=== PATIENT | female | born 1970 | race Caucasian/White ===

== ENCOUNTER 2017-08-03 22:11 | Emergency (ER) | payer MEDICAID | END 2017-08-04 01:00 | disposition home or self-care (01) | LOC: D.ER 22:11 | DX: S39.012A Strain of muscle, fascia and tendon of lower back, initial encounter (principal); W10.9XXA Fall (on) (from) unspecified stairs and steps, initial encounter; Y93.89 Activity, other specified; Y92.019 Unspecified place in single-family (private) house as the place of occurrence of the external cause; F17.200 Nicotine dependence, unspecified, uncomplicated ==

== ENCOUNTER 2017-10-07 21:14 | Inpatient (IN) | payer MEDICAID ==
[~2017-10-07] VITALS: Ht 167.6 cm; Wt 63.6 kg
--- NOTE | ~2017-10-07 | HP ---
PATIENT: HEIDI DAVIS MEDICAL RECORD: [id number] ACCOUNT: [id number] LOCATION:[facility] : 74 ADMISSION DATE: 10/08/17 HISTORY AND PHYSICAL EXAMINATION DATE OF ADMISSION: 10/08/2017 CHIEF COMPLAINT: Coughing, shortness of breath. HISTORY OF PRESENT ILLNESS: This is a 46-year-old white female who has no primary care doctor. She and her moved here from [place] about 3 months ago. She has been to a walk-in clinic twice with cough, congestion problems. The second time, she was diagnosed with pneumonia and she was prescribed an inhaler and placed on Zithromax. She was also given some steroids. She has been on this medicine for a few days, it has gotten better and presented to the Emergency Department here where chest x-ray shows bibasilar infiltrates. Her potassium is low at 2.6 and her white count is high at 21,600. PAST MEDICAL AND SURGICAL HISTORY: Fibromyalgia, night terrors/anxiety. PAST SURGICAL HISTORY: . HOME MEDICATIONS: Lyrica 200 mg once a day, Xanax 1 mg at bedtime. DRUG ALLERGIES: TRAMADOL causes headache. HABITS: She does smoke. No alcohol or drugs. SOCIAL HISTORY: . She works in the [employer] department in the [place]. FAMILY HISTORY: Father . He had a stroke and heart problems. Mother at age 70 of a stroke. REVIEW OF SYSTEMS: GENERAL: No major weight changes. HEENT: No particular sinus or allergy problems. RESPIRATORY: No known history of COPD or asthma. CARDIAC: No chest pain or shortness of breath. GASTROINTESTINAL: No diarrhea, constipation, or reflux. GENITOURINARY: No significant problems there. MUSCULOSKELETAL: She has a history of fibromyalgia. NEUROLOGIC: No migraine headaches or seizures. PSYCHIATRIC: She has history of night terrors and anxiety. She has had several family members to in a short period of time. PHYSICAL EXAMINATION: VITAL SIGNS: Temperature 98.1, pulse 97, respirations 18, blood pressure 158/109, O2 sat 97% on oxygen. GENERAL: She is awake and alert. She has an occasional terrible loose cough. HEENT: Grossly within normal limits. NECK: Supple. No JVD or bruit. HEART: Regular rate and rhythm. LUNGS: Actually fairly clear. ABDOMEN: Soft. EXTREMITIES: No edema. HISTORY AND PHYSICAL [id number] HEIDI DAVIS LABORATORY DATA: CBC showed a white count of 21,600, hemoglobin 12.7, hematocrit 36.7. LFTs were okay. Basic metabolic panel is all okay except potassium of 2.6. Lactic acid is 2.2. Chest x-ray shows bibasilar disease. ASSESSMENT: 1. Pneumonia. 2. History of fibromyalgia. 3. History of night terrors. PLAN: IV antibiotics, respiratory care. Other tests or procedures as warranted. TRANSINT:[id number] Voice Confirmation ID: [id number] DOCUMENT ID: [id number] ROBERTO CARLOS CUNNINGHAM MD at 1250 CC: [id number] DICTATION DATE: 10/08/17 1320 ACTIVITY SPECIALIST: 10/08/17 1333 ADM IN [place] [id number] [place] [address]
[2017-10-07] MEDS ORDERED: ZITHROMAX250 MG PO (21:38)
[2017-10-07] MEDS ORDERED: PROVENTIL/2.5 MG/3 M INH (21:39)
[2017-10-07] MEDS ORDERED: XANAX1 MG PO (21:39)
[2017-10-07] MEDS ORDERED: PHENERGAN DM SYR5 ML (21:40)
[2017-10-07 23:40] LABS: HEMATOCRIT 36.7 % (36.0-48.0); HEMOGLOBIN 12.7 g/dL (12-16); MCH 31.7 pg (26.0-34.0); MCHC 34.6 g/dL (31.0-37.0); MCV 91.5 fL (80.0-100.0); MEAN PLATELET VOLUME 8.9 fL (7.4-10.4); PLATELET COUNT 305 10x3/uL (130-400); RBC 4.01 10x6/uL (4.00-5.40); RDW 12.9 % (11.5-14.5); WBC 21.6 10x3/uL (4.8-10.8)
[2017-10-08 00:03] LABS: ANION GAP 13.3 mmol/L (8-16); BILIRUBIN - TOTAL 0.11 mg/dL (0.2-1.3); CALCIUM 8.2 mg/dL (8.5-10.1); CARBON DIOXIDE 24.3 mmol/L (21.0-32.0); CREATININE - SERUM 1.1 mg/dL (0.6-1.3); PROTEIN - SERUM 6.9 g/dL (6.4-8.2)
[2017-10-08 00:10] LABS: POTASSIUM - SERUM 2.6 mmol/L (3.5-5.1)
[2017-10-08 00:18] LABS: LYMPHOCYTES 27 % (15-50); MONOCYTES 1 % (2-11); NEUTROPHILS 70 % (40-80); PLATELET ESTIMATE NORMAL
[2017-10-08 03:06] LABS: CKMB 2.5 U/L (0.0-3.6); CREATINE KINASE 101 UL (21-215); TROPONIN-I < 0.017 ng/mL (0.000-0.060)
[2017-10-08 03:24] VITALS: BP 138/103
[2017-10-08 06:26] VITALS: BP 147/91
[2017-10-08 12:05] VITALS: BP 158/109
[2017-10-08 12:09] LABS: BASOPHILS 0.1 % (0-2); EOSINOPHILS 0 % (0-7); HEMOGLOBIN 12.7 g/dL (12-16); IMMATURE GRANULOCYTES 2.8 % (0-5); LYMPHOCYTES 13.7 % (15-50); MCH 31.3 pg (26.0-34.0); MCHC 33.4 g/dL (31.0-37.0); MEAN PLATELET VOLUME 9.6 fL (7.4-10.4); MONOCYTES 3.1 % (2-11); NEUTROPHILS 80.3 % (40-80); PLATELET COUNT 293 10x3/uL (130-400); RBC 4.06 10x6/uL (4.00-5.40); RDW 13.2 % (11.5-14.5)
[2017-10-08 12:16] LABS: MCV 93.6 fL (80.0-100.0); WBC 15.9 10x3/uL (4.8-10.8)
[2017-10-08 12:34] LABS: ALBUMIN 3.2 g/dL (3.4-5.0); ANION GAP 12.7 mmol/L (8-16); BILIRUBIN - TOTAL 0.13 mg/dL (0.2-1.3); CALCIUM 8.4 mg/dL (8.5-10.1); CARBON DIOXIDE 28.4 mmol/L (21.0-32.0)
[2017-10-08 12:35] LABS: POTASSIUM - SERUM 4.1 mmol/L (3.5-5.1)
[2017-10-08 22:40] VITALS: BP 131/81
[2017-10-09 01:14] VITALS: BP 150/90
[2017-10-09 03:38] VITALS: BP 131/81; Ht 167.6 cm; Wt 63.6 kg
[2017-10-09 05:44] LABS: BASOPHILS 0.1 % (0-2); EOSINOPHILS 0.1 % (0-7); HEMOGLOBIN 12.1 g/dL (12-16); IMMATURE GRANULOCYTES 3.9 % (0-5); LYMPHOCYTES 13.1 % (15-50); MCH 30.9 pg (26.0-34.0); MCHC 32.7 g/dL (31.0-37.0); MCV 94.4 fL (80.0-100.0); MEAN PLATELET VOLUME 9.7 fL (7.4-10.4); MONOCYTES 5.5 % (2-11); NEUTROPHILS 77.3 % (40-80); PLATELET COUNT 290 10x3/uL (130-400); RBC 3.92 10x6/uL (4.00-5.40); WBC 18.3 10x3/uL (4.8-10.8)
[2017-10-09 06:04] LABS: ANION GAP 8.5 mmol/L (8-16); CALCIUM 7.8 mg/dL (8.5-10.1); CARBON DIOXIDE 29.1 mmol/L (21.0-32.0); CREATININE - SERUM 1.1 mg/dL (0.6-1.3); POTASSIUM - SERUM 3.6 mmol/L (3.5-5.1)
[2017-10-09 08:00] VITALS: BP 139/96
[2017-10-09 11:39] VITALS: BP 144/92
[2017-10-09 16:49] VITALS: BP 128/81
[2017-10-09 20:19] VITALS: BP 152/88
[2017-10-10 00:20] VITALS: BP 125/79
[2017-10-10 03:34] VITALS: BP 154/74
[2017-10-10 05:54] LABS: BASOPHILS 0.1 % (0-2); EOSINOPHILS 0.1 % (0-7); HEMATOCRIT 35.5 % (36.0-48.0); HEMOGLOBIN 11.8 g/dL (12-16); IMMATURE GRANULOCYTES 4.9 % (0-5); LYMPHOCYTES 13.7 % (15-50); MCH 30.6 pg (26.0-34.0); MCHC 33.2 g/dL (31.0-37.0); MEAN PLATELET VOLUME 9.7 fL (7.4-10.4); NEUTROPHILS 77.2 % (40-80); PLATELET COUNT 282 10x3/uL (130-400); RBC 3.86 10x6/uL (4.00-5.40); RDW 12.9 % (11.5-14.5); WBC 17.8 10x3/uL (4.8-10.8)
[2017-10-10 06:09] LABS: ANION GAP 10.4 mmol/L (8-16); CREATININE - SERUM 1.1 mg/dL (0.6-1.3); POTASSIUM - SERUM 3.4 mmol/L (3.5-5.1)
[2017-10-10 08:33] VITALS: BP 155/93
[2017-10-10 12:22] VITALS: BP 143/90
[2017-10-10 17:16] VITALS: BP 141/64
[2017-10-10 20:04] VITALS: BP 136/85
[2017-10-11] VITALS: BP 150/92
[2017-10-11 04:59] VITALS: BP 140/86
[2017-10-11 06:22] LABS: BASOPHILS 0.2 % (0-2); EOSINOPHILS 0 % (0-7); HEMATOCRIT 36.7 % (36.0-48.0); HEMOGLOBIN 12.3 g/dL (12-16); IMMATURE GRANULOCYTES 6.5 % (0-5); LYMPHOCYTES 11.1 % (15-50); MCH 30.8 pg (26.0-34.0); MCHC 33.5 g/dL (31.0-37.0); MONOCYTES 2.9 % (2-11); NEUTROPHILS 79.3 % (40-80); PLATELET COUNT 314 10x3/uL (130-400); RBC 3.99 10x6/uL (4.00-5.40); RDW 12.9 % (11.5-14.5)
[2017-10-11 06:57] LABS: % SATURATION 42 % (15-55); IRON 111 ug/dl (35-150); TOTAL IRON BIND CAPACITY 262 ug/dl (260-445); UNSAT IRON BIND CAPACITY 151 ug/dl (150-375)
[2017-10-11 07:02] LABS: ANION GAP 15.2 mmol/L (8-16); CALCIUM 8.2 mg/dL (8.5-10.1); CARBON DIOXIDE 27.2 mmol/L (21.0-32.0); CREATININE - SERUM 1.2 mg/dL (0.6-1.3); MAGNESIUM - SERUM 2.3 mg/dL (1.8-2.4); PHOSPHOROUS 4.4 mg/dL (2.5-4.9); POTASSIUM - SERUM 3.4 mmol/L (3.5-5.1)
[2017-10-11 07:40] LABS: ERYTHROCYTE SEDIMENTATION RATE 6 mm/hr (0-20)
[2017-10-11 09:36] VITALS: BP 151/92
[2017-10-11 15:03] VITALS: BP 146/94
[2017-10-11 18:07] VITALS: BP 149/96
[2017-10-11 20:43] VITALS: BP 152/92
[2017-10-12 00:43] VITALS: BP 149/91
[2017-10-12 05:06] VITALS: BP 156/107
[2017-10-12 05:40] LABS: BASOPHILS 0.2 % (0-2); EOSINOPHILS 0 % (0-7); HEMATOCRIT 37.5 % (36.0-48.0); HEMOGLOBIN 12.7 g/dL (12-16); IMMATURE GRANULOCYTES 6.9 % (0-5); LYMPHOCYTES 11.9 % (15-50); MCH 31.2 pg (26.0-34.0); MCHC 33.9 g/dL (31.0-37.0); MCV 92.1 fL (80.0-100.0); MEAN PLATELET VOLUME 9.6 fL (7.4-10.4); MONOCYTES 4.5 % (2-11); NEUTROPHILS 76.5 % (40-80); PLATELET COUNT 300 10x3/uL (130-400); RBC 4.07 10x6/uL (4.00-5.40); RDW 12.9 % (11.5-14.5); WBC 16.9 10x3/uL (4.8-10.8)
[2017-10-12 06:09] LABS: ANION GAP 9.8 mmol/L (8-16); CALCIUM 8.2 mg/dL (8.5-10.1); CARBON DIOXIDE 30.8 mmol/L (21.0-32.0); POTASSIUM - SERUM 3.6 mmol/L (3.5-5.1)
[2017-10-12] MEDS ORDERED: MAXIPIME1 GM IV (07:03)
[2017-10-12 08:30] VITALS: BP 150/93
[2017-10-12 12:45] VITALS: BP 166/92
[2017-10-12 16:31] VITALS: BP 139/93
[2017-10-13 06:41] LABS: ANION GAP 13.3 mmol/L (8-16); CALCIUM 8.4 mg/dL (8.5-10.1); CARBON DIOXIDE 30.3 mmol/L (21.0-32.0); CREATININE - SERUM 1.1 mg/dL (0.6-1.3); POTASSIUM - SERUM 3.6 mmol/L (3.5-5.1)
[2017-10-13 06:51] LABS: HEMATOCRIT 38.2 % (36.0-48.0); MCH 31.3 pg (26.0-34.0); PLATELET COUNT 302 10x3/uL (130-400); RBC 4.15 10x6/uL (4.00-5.40); RDW 13.1 % (11.5-14.5); WBC 20.2 10x3/uL (4.8-10.8)
[2017-10-13 06:57] VITALS: BP 146/100
[2017-10-13 07:31] LABS: LYMPHOCYTES 14 % (15-50); MONOCYTES 3 % (2-11); NEUTROPHILS 75 % (40-80); PLATELET ESTIMATE NORMAL
[2017-10-13 09:23] VITALS: BP 160/101
[2017-10-13 11:25] LABS: UDS - AMPHET NEGATIVE QUAL (NEGATIVE); UDS - BARB NEGATIVE QUAL (NEGATIVE); UDS - BENZO NEGATIVE QUAL (NEGATIVE); UDS - COCAINE NEGATIVE QUAL (NEGATIVE); UDS - OPIATE NEGATIVE QUAL (NEGATIVE); UDS - PCP NEGATIVE QUAL (NEGATIVE); UDS - THC NEGATIVE QUAL (NEGATIVE)
[2017-10-13 12:48] VITALS: BP 144/88
[2017-10-13 17:13] VITALS: BP 151/89
[2017-10-13 19:38] VITALS: BP 136/89
[2017-10-13 22:51] VITALS: BP 136/84
[2017-10-14 03:43] VITALS: BP 146/85
[2017-10-14 06:29] LABS: BASOPHILS 0.2 % (0-2); EOSINOPHILS 0.6 % (0-7); HEMATOCRIT 37.6 % (36.0-48.0); HEMOGLOBIN 12.3 g/dL (12-16); IMMATURE GRANULOCYTES 6.2 % (0-5); LYMPHOCYTES 28.5 % (15-50); MCH 30.7 pg (26.0-34.0); MCHC 32.7 g/dL (31.0-37.0); MCV 93.8 fL (80.0-100.0); MONOCYTES 5.6 % (2-11); NEUTROPHILS 58.9 % (40-80); PLATELET COUNT 255 10x3/uL (130-400); RBC 4.01 10x6/uL (4.00-5.40); RDW 13.4 % (11.5-14.5)
[2017-10-14 11:18] LABS: ANGIOTENSIN CONVERTING ENZYME 23 U/L (14-82)
[2017-10-14 12:24] VITALS: BP 128/89
[2017-10-14 13:15] LABS: ANA REFLEX - DIRECT Negative (Negative)
[2017-10-14] MEDS ORDERED: OMNICEF300 MG PO (15:25)
[2017-10-14] MEDS ORDERED: VIBRAMYCIN 100100 MG PO (15:25)
[2017-10-14 16:14] VITALS: BP 129/96
[2017-10-14] MEDS ORDERED: NICODERM C1 PATCH .2 TRANSDERM (18:16)
[2017-10-15 03:11] LABS: MYCOPLASMA PNEUMO IGG 152 U/mL (0-99)
[2017-10-15 08:24] LABS: IMMUNOGLOBULIN E 49 IU/mL (0-100)
[2017-10-15 15:35] LABS: ANCA - ANTIMYELOPEROXIDASE <9.0 U/mL (0.0-9.0); ANCA - ANTIPROTEINASE 3 <3.5 U/mL (0.0-3.5); ANCA - ATYPICAL <1:20 titer (Neg:<1:20); ANCA - CYTOPLASMIC <1:20 titer (Neg:<1:20); ANCA - PERINUCLEAR <1:20 titer (Neg:<1:20)
== END 2017-10-14 18:36 | disposition home or self-care (01) | DRG 190 ==
LOC: D.ER 21:14 → D.EDHOLD 10-08 02:51 → D.MS 10-08 02:51
PROVIDERS: Family Medicine; Internal Medicine Pulmonary Disease
DX: J44.0 Chronic obstructive pulmonary disease with (acute) lower respiratory infection (principal); J18.9 Pneumonia, unspecified organism; F17.203 Nicotine dependence unspecified, with withdrawal; E87.2 Acidosis; J44.1 Chronic obstructive pulmonary disease with (acute) exacerbation; E87.6 Hypokalemia; M79.7 Fibromyalgia; F41.9 Anxiety disorder, unspecified; D64.9 Anemia, unspecified; G43.909 Migraine, unspecified, not intractable, without status migrainosus

== ENCOUNTER 2017-11-17 22:32 | Observation (INO) | payer MEDICAID ==
[~2017-11-17] VITALS: Ht 167.6 cm; Wt 68.8 kg
[~2017-11-17 22:32] MED LIST: MAXIPIME1 GM IV; NICODERM C1 PATCH .2 TRANSDERM; OMNICEF300 MG PO; PHENERGAN DM SYR5 ML; PROVENTIL/2.5 MG/3 M INH; VIBRAMYCIN 100100 MG PO; XANAX1 MG PO; ZITHROMAX250 MG PO
[2017-11-17 23:06] LABS: BASOPHILS 0.5 % (0-2); EOSINOPHILS 3.7 % (0-7); HEMATOCRIT 40.4 % (36.0-48.0); HEMOGLOBIN 13.7 g/dL (12-16); IMMATURE GRANULOCYTES 0.5 % (0-5); LYMPHOCYTES 34.1 % (15-50); MCH 31.3 pg (26.0-34.0); MCHC 33.9 g/dL (31.0-37.0); MCV 92.2 fL (80.0-100.0); MEAN PLATELET VOLUME 9.5 fL (7.4-10.4); MONOCYTES 11.6 % (2-11); NEUTROPHILS 49.6 % (40-80); PLATELET COUNT 238 10x3/uL (130-400); RBC 4.38 10x6/uL (4.00-5.40); RDW 13.2 % (11.5-14.5); WBC 7.9 10x3/uL (4.8-10.8)
[2017-11-17 23:19] LABS: ALBUMIN 3.7 g/dL (3.4-5.0); ALKALINE PHOSPHATASE 94 U/L (46-116); ALT (SGPT) 69 U/L (10-68); CALC OSMOLALITY 275 mosm/kg (275-300); CALCIUM 8.8 mg/dL (8.5-10.1); CARBON DIOXIDE 27.1 mmol/L (21.0-32.0); CHLORIDE - SERUM 103 mmol/L (98-107); CREATININE - SERUM 1.1 mg/dL (0.6-1.3); POTASSIUM - SERUM 3.5 mmol/L (3.5-5.1); PROTEIN - SERUM 7.4 g/dL (6.4-8.2); SODIUM 137 mmol/L (136-145); UREA NITROGEN 17 mg/dL (7-18); eGFR NON AFRICAN AMERICAN 57 mL/min (90-120)
[2017-11-17 23:23] LABS: GLUCOSE 94 mg/dL (74-106)
[2017-11-17 23:47] LABS: TROPONIN-I < 0.017 ng/mL (0.000-0.060)
[2017-11-17 23:49] LABS: CKMB 33.3 U/L (0.0-3.6); CREATINE KINASE 2504 UL (21-215)
[2017-11-18 01:25] LABS: APPEARANCE CLEAR (CLEAR); BILIRUBIN NEGATIVE (NEGATIVE); COLOR YELLOW (YELLOW); GLUCOSE NEGATIVE (NEGATIVE); KETONE NEGATIVE (NEGATIVE); NITRITE NEGATIVE (NEGATIVE); PROTEIN NEGATIVE (NEGATIVE); SPECIFIC GRAVITY 1.015 (1.005-1.020); UROBILINOGEN NORMAL (NORMAL)
[2017-11-18 01:30] LABS: UDS - AMPHET NEGATIVE QUAL (NEGATIVE); UDS - BARB NEGATIVE QUAL (NEGATIVE); UDS - BENZO POSITIVE QUAL (NEGATIVE); UDS - COCAINE NEGATIVE QUAL (NEGATIVE); UDS - OPIATE NEGATIVE QUAL (NEGATIVE); UDS - PCP NEGATIVE QUAL (NEGATIVE); UDS - THC NEGATIVE QUAL (NEGATIVE)
[2017-11-18 01:35] VITALS: BP 115/83; BMI 24.4
[2017-11-18] MEDS ORDERED: CYMBALTA20 MG (02:37)
[2017-11-18] MEDS ORDERED: LYRICA100 MG PO (02:37)
[2017-11-18] MEDS ORDERED: CYCLOBENZAPRINE10 MG PO (02:38)
[2017-11-18 07:47] VITALS: BP 104/65
[2017-11-18 08:46] VITALS: Ht 167.6 cm; Wt 68.8 kg
[2017-11-18 11:18] VITALS: BP 108/85
[2017-11-18 14:57] VITALS: BP 102/66
== END 2017-11-18 17:47 | disposition home or self-care (01) ==
LOC: D.ER 22:32 → D.M2 11-18 00:46 → OBSVTIME 11-18 00:46 → D.M2 11-18 17:47
PROVIDERS: Emergency Medicine
DX: R07.89 Other chest pain (principal); F41.9 Anxiety disorder, unspecified; F51.4 Sleep terrors [night terrors]; G62.9 Polyneuropathy, unspecified; M79.7 Fibromyalgia; F17.213 Nicotine dependence, cigarettes, with withdrawal

== ENCOUNTER → 2017-11-21 13:31 | Outpatient (CLI) | payer MEDICAID ==
[2017-11-18 08:46] VITALS: BMI 24.4
[~2017-11-21 13:31] MED LIST changes: +CYCLOBENZAPRINE10 MG PO; +CYMBALTA20 MG; +LEVAQUIN750 MG PO; +LYRICA100 MG PO; +PROMETHAZINE W473 M1 PO
== END | disposition home or self-care (01) ==
LOC: D.RT 13:31
DX: Z87.01 Personal history of pneumonia (recurrent) (principal)

== ENCOUNTER 2017-11-21 17:16 | Emergency (ER) | payer MEDICAID ==
[~2017-11-21] VITALS: Ht 167.6 cm; Wt 68.2 kg
[~2017-11-21 17:16] MED LIST changes: -LEVAQUIN750 MG PO; -PROMETHAZINE W473 M1 PO
[2017-11-21 18:01] VITALS: Ht 167.6 cm; Wt 68.2 kg
[2017-11-21 18:26] LABS: BASOPHILS 0.3 % (0-2); EOSINOPHILS 3.1 % (0-7); HEMATOCRIT 43.2 % (36.0-48.0); HEMOGLOBIN 14.8 g/dL (12-16); IMMATURE GRANULOCYTES 0.5 % (0-5); LYMPHOCYTES 39.9 % (15-50); MCH 31.6 pg (26.0-34.0); MCHC 34.3 g/dL (31.0-37.0); MCV 92.3 fL (80.0-100.0); MEAN PLATELET VOLUME 9.8 fL (7.4-10.4); MONOCYTES 5.4 % (2-11); NEUTROPHILS 50.8 % (40-80); PLATELET COUNT 229 10x3/uL (130-400); RBC 4.68 10x6/uL (4.00-5.40); RDW 13.2 % (11.5-14.5); WBC 9.9 10x3/uL (4.8-10.8)
[2017-11-21 18:53] LABS: ALBUMIN 3.9 g/dL (3.4-5.0); ALKALINE PHOSPHATASE 85 U/L (46-116); ALT (SGPT) 58 U/L (10-68); BILIRUBIN - TOTAL 0.25 mg/dL (0.2-1.3); CALC OSMOLALITY 280 mosm/kg (275-300); CALCIUM 9.1 mg/dL (8.5-10.1); CARBON DIOXIDE 28.4 mmol/L (21.0-32.0); CHLORIDE - SERUM 104 mmol/L (98-107); CREATININE - SERUM 0.9 mg/dL (0.6-1.3); GLUCOSE 108 mg/dL (74-106); POTASSIUM - SERUM 3.8 mmol/L (3.5-5.1); SODIUM 140 mmol/L (136-145); UREA NITROGEN 15 mg/dL (7-18); eGFR NON AFRICAN AMERICAN 72 mL/min (90-120)
[2017-11-21 19:22] LABS: TROPONIN-I < 0.017 ng/mL (0.000-0.060)
[2017-11-21] MEDS ORDERED: LEVAQUIN750 MG PO (21:58)
[2017-11-21] MEDS ORDERED: PROMETHAZINE W473 M1 PO (21:58)
[2017-11-21 22:09] VITALS: BP 150/102
== END 2017-11-21 22:09 | disposition home or self-care (01) ==
LOC: D.ER 17:16
PROVIDERS: Family Medicine
DX: J40 Bronchitis, not specified as acute or chronic (principal); M94.0 Chondrocostal junction syndrome [Tietze]; R05 Cough; F17.200 Nicotine dependence, unspecified, uncomplicated

== ENCOUNTER 2018-01-19 18:42 | Emergency (ER) | payer MEDICAID ==
[~2018-01-19] VITALS: Ht 167.6 cm; Wt 63.5 kg
[~2018-01-19 18:42] MED LIST changes: +LEVAQUIN750 MG PO; +PROMETHAZINE W473 M1 PO
[2018-01-19 19:06] VITALS: Ht 167.6 cm; Wt 63.5 kg
[2018-01-19 21:07] LABS: BASOPHILS 0.4 % (0-2); EOSINOPHILS 3.8 % (0-7); HEMATOCRIT 46.8 % (36.0-48.0); HEMOGLOBIN 15.8 g/dL (12-16); IMMATURE GRANULOCYTES 0.1 % (0-5); LYMPHOCYTES 38.5 % (15-50); MCH 30.9 pg (26.0-34.0); MCHC 33.8 g/dL (31.0-37.0); MCV 91.6 fL (80.0-100.0); MEAN PLATELET VOLUME 10.5 fL (7.4-10.4); MONOCYTES 9.2 % (2-11); PLATELET COUNT 231 10x3/uL (130-400); RBC 5.11 10x6/uL (4.00-5.40); RDW 13.2 % (11.5-14.5); WBC 6.9 10x3/uL (4.8-10.8)
[2018-01-19 21:24] LABS: ANION GAP 14.8 mmol/L (8-16); BILIRUBIN - TOTAL 0.27 mg/dL (0.2-1.3); CALCIUM 9.3 mg/dL (8.5-10.1); CARBON DIOXIDE 26.9 mmol/L (21.0-32.0); CREATININE - SERUM 1.2 mg/dL (0.6-1.3); POTASSIUM - SERUM 3.7 mmol/L (3.5-5.1); PROTEIN - SERUM 7.8 g/dL (6.4-8.2)
[2018-01-19] MEDS ORDERED: ZPAK PO (21:58)
[2018-01-19] MEDS ORDERED: SCOT-TUSSI10 MG/5 ML PO (21:58)
[2018-01-19] MEDS ORDERED: VENTOLIN HFA18 GM INH (21:58)
[2018-01-19 22:19] VITALS: BP 123/85
== END 2018-01-19 22:20 | disposition home or self-care (01) ==
LOC: D.ER 18:42
PROVIDERS: Family Medicine
DX: J40 Bronchitis, not specified as acute or chronic (principal); J44.1 Chronic obstructive pulmonary disease with (acute) exacerbation; R09.89 Other specified symptoms and signs involving the circulatory and respiratory systems; M79.18 Myalgia, other site; F17.200 Nicotine dependence, unspecified, uncomplicated

== ENCOUNTER 2018-03-23 15:47 | Emergency (ER) | payer MEDICAID ==
[~2018-03-23] VITALS: Ht 167.6 cm; Wt 68.2 kg
[~2018-03-23 15:47] MED LIST changes: +SCOT-TUSSI10 MG/5 ML PO; +VENTOLIN HFA18 GM INH; +ZPAK PO
[2018-03-23 16:00] VITALS: Ht 167.6 cm; Wt 68.2 kg
[2018-03-23 16:34] LABS: BASOPHILS 0.4 % (0-2); EOSINOPHILS 4.7 % (0-7); HEMATOCRIT 40.5 % (36.0-48.0); HEMOGLOBIN 13.3 g/dL (12-16); IMMATURE GRANULOCYTES 0.4 % (0-5); LYMPHOCYTES 40.4 % (15-50); MCH 29.9 pg (26.0-34.0); MCHC 32.8 g/dL (31.0-37.0); MEAN PLATELET VOLUME 9.6 fL (7.4-10.4); MONOCYTES 9.9 % (2-11); NEUTROPHILS 44.2 % (40-80); PLATELET COUNT 204 10x3/uL (130-400); RBC 4.45 10x6/uL (4.00-5.40); RDW 13.6 % (11.5-14.5); WBC 5.6 10x3/uL (4.8-10.8)
[2018-03-23 16:53] LABS: ALBUMIN 3.4 g/dL (3.4-5.0); ANION GAP 14.1 mmol/L (8-16); BILIRUBIN - TOTAL 0.16 mg/dL (0.2-1.3); CALCIUM 8.6 mg/dL (8.5-10.1); CARBON DIOXIDE 28.4 mmol/L (21.0-32.0); POTASSIUM - SERUM 3.5 mmol/L (3.5-5.1); PROTEIN - SERUM 7.1 g/dL (6.4-8.2)
[2018-03-23 17:00] LABS: APPEARANCE CLEAR (CLEAR); BILIRUBIN NEGATIVE (NEGATIVE); COLOR YELLOW (YELLOW); GLUCOSE NEGATIVE (NEGATIVE); KETONE NEGATIVE (NEGATIVE); NITRITE NEGATIVE (NEGATIVE); PROTEIN NEGATIVE (NEGATIVE); UROBILINOGEN NORMAL (NORMAL)
[2018-03-23] MEDS ORDERED: TAMIFLU75 MG PO (18:03)
[2018-03-23 18:25] VITALS: BP 116/90
== END 2018-03-23 18:25 | disposition home or self-care (01) ==
LOC: D.ER 15:47
PROVIDERS: Family Medicine
DX: J11.1 Influenza due to unidentified influenza virus with other respiratory manifestations (principal); R05 Cough; R51 Headache; M79.18 Myalgia, other site; R11.10 Vomiting, unspecified; M54.5 Low back pain; R06.2 Wheezing; F17.200 Nicotine dependence, unspecified, uncomplicated

== ENCOUNTER 2018-05-18 16:32 | Emergency (ER) | payer MEDICAID ==
[~2018-05-18] VITALS: Ht 167.6 cm; Wt 65.9 kg
[~2018-05-18 16:32] MED LIST changes: +TAMIFLU75 MG PO
[2018-05-18 16:41] VITALS: Ht 167.6 cm; Wt 65.9 kg
[2018-05-18 17:05] LABS: BASOPHILS 0.2 % (0-2); EOSINOPHILS 1.8 % (0-7); HEMATOCRIT 48.4 % (36.0-48.0); HEMOGLOBIN 16.4 g/dL (12-16); IMMATURE GRANULOCYTES 0.2 % (0-5); LYMPHOCYTES 34.1 % (15-50); MCH 30.8 pg (26.0-34.0); MCHC 33.9 g/dL (31.0-37.0); MCV 90.8 fL (80.0-100.0); MONOCYTES 7.2 % (2-11); NEUTROPHILS 56.5 % (40-80); PLATELET COUNT 290 10x3/uL (130-400); RBC 5.33 10x6/uL (4.00-5.40)
[2018-05-18 17:07] LABS: APPEARANCE CLEAR (CLEAR); BILIRUBIN NEGATIVE (NEGATIVE); COLOR YELLOW (YELLOW); GLUCOSE NEGATIVE (NEGATIVE); KETONE NEGATIVE (NEGATIVE); NITRITE NEGATIVE (NEGATIVE); PROTEIN NEGATIVE (NEGATIVE); UROBILINOGEN NORMAL (NORMAL); WHITE CELLS - URINE 0-5 /hpf (0-5)
[2018-05-18 17:08] LABS: EPITHELIAL CELLS 0-5 /hpf (0-5); RED CELLS - URINE NONE SEEN /hpf (0-5)
[2018-05-18] MEDS ORDERED: PHENERGAN DM SYR5 ML PO (17:23)
[2018-05-18] MEDS ORDERED: VIBRAMYCIN 100100 MG PO (17:23)
[2018-05-18 17:25] LABS: ALBUMIN 4.3 g/dL (3.4-5.0); ANION GAP 17.4 mmol/L (8-16); BILIRUBIN - TOTAL 0.25 mg/dL (0.2-1.3); CALCIUM 9.4 mg/dL (8.5-10.1); CREATININE - SERUM 1.1 mg/dL (0.6-1.3); POTASSIUM - SERUM 3.4 mmol/L (3.5-5.1); PROTEIN - SERUM 8.6 g/dL (6.4-8.2)
[2018-05-18] MEDS ORDERED: CIPRO500 MG PO (18:03)
[2018-05-18 18:48] VITALS: BP 136/80
== END 2018-05-18 18:49 | disposition home or self-care (01) ==
LOC: D.ER 16:32
PROVIDERS: Family Medicine
DX: J06.9 Acute upper respiratory infection, unspecified (principal); N39.0 Urinary tract infection, site not specified; F17.200 Nicotine dependence, unspecified, uncomplicated; R09.89 Other specified symptoms and signs involving the circulatory and respiratory systems

== ENCOUNTER 2018-06-02 10:25 | Inpatient (IN) | payer MEDICAID ==
[~2018-06-02] VITALS: Ht 167.6 cm; Wt 69.4 kg
[~2018-06-02 10:25] MED LIST changes: +CIPRO500 MG PO; +PHENERGAN DM SYR5 ML PO
[2018-06-02 11:22] LABS: BASOPHILS 0.1 % (0-2); EOSINOPHILS 1.1 % (0-7); HEMATOCRIT 45.8 % (36.0-48.0); HEMOGLOBIN 15.5 g/dL (12-16); IMMATURE GRANULOCYTES 0.2 % (0-5); LYMPHOCYTES 13.2 % (15-50); MCH 30.5 pg (26.0-34.0); MCHC 33.8 g/dL (31.0-37.0); MEAN PLATELET VOLUME 10.1 fL (7.4-10.4); MONOCYTES 5.2 % (2-11); NEUTROPHILS 80.2 % (40-80); PLATELET COUNT 308 10x3/uL (130-400); RBC 5.09 10x6/uL (4.00-5.40); RDW 13.2 % (11.5-14.5); WBC 13.5 10x3/uL (4.8-10.8)
--- NOTE | 2018-06-02 11:30 | NUR ---
PT AAO IN ROOM, DENIES NEEDS AT THIS TIME, NO ACUTE DISTRESS NOTED, WILL CONTINUE TO MONITOR.
[2018-06-02 11:31] LABS: ALBUMIN 4.1 g/dL (3.4-5.0); ALKALINE PHOSPHATASE 72 U/L (46-116); ALT (SGPT) 43 U/L (10-68); BILIRUBIN - TOTAL 0.61 mg/dL (0.2-1.3); CALC OSMOLALITY 270 mosm/kg (275-300); CALCIUM 9.5 mg/dL (8.5-10.1); CARBON DIOXIDE 23.2 mmol/L (21.0-32.0); CHLORIDE - SERUM 99 mmol/L (98-107); CREATININE - SERUM 0.9 mg/dL (0.6-1.3); GLUCOSE 124 mg/dL (74-106); POTASSIUM - SERUM 3.6 mmol/L (3.5-5.1); PROTEIN - SERUM 8.2 g/dL (6.4-8.2); SODIUM 134 mmol/L (136-145); UREA NITROGEN 18 mg/dL (7-18); eGFR NON AFRICAN AMERICAN 72 mL/min (90-120)
[2018-06-02 11:35] LABS: TROPONIN-I < 0.017 ng/mL (0.000-0.060)
--- NOTE | 2018-06-02 12:30 | NUR ---
PT RESTING IN BED, RESPIRATIONS EVEN AND UNLABORED, NO SIGNS OF DISTRESS, WILL CONTINUE TO MONITOR.
--- NOTE | 2018-06-02 13:30 | NUR ---
PT AMBULATORY TO THE RESTROOM WITHOUT ASSISTANCE.
--- NOTE | 2018-06-02 14:05 | NUR ---
ROCEPHIN INFUSION COMPLETE AT THIS TIME.
--- NOTE | 2018-06-02 14:20 | NUR ---
PT RESTING IN BED, NO SIGNS OF DISTRESS NOTED, WILL CONTINUE TO MONITOR.
--- NOTE | 2018-06-02 15:38 | NUR ---
RECEIVED TO ROOM 2209 VIA WC FROM ER. A/O X3. C/O SEVERE HEADACHE AND HUNGRY. SKIN IS INTACT WITHOUT REDNESS. LUNGS ARE CLEAR BILATERALLY BUT SLIGHTLY DIMINISHED. SATS AT 95% ON 2LNC.GIVEN 4MG MORPHINE SLOW IVP FOR C/O PAIN LEVEL 7. GIVEN A SANDWICH TRAY. WILL MONITOR.
[2018-06-02 17:17] VITALS: BP 114/81
--- NOTE | 2018-06-02 18:45 | NUR ---
ATE ABOUT HALF OF SUPPER. DENIES NEEDS. REQUESTED AND GIVEN 650MG TYLENOL PO FOR CONTINUED C/O HEADACHE. WILL MONITOR. NO CHANGES NOTED.
--- NOTE | 2018-06-02 22:34 | NUR ---
194) REC'D. SITTING UP IN BED PLAYING GAME ON PERSONAL PHONE. DENIES PAIN STATES HEADACHE STILL BUT BETTER SINCE TYLENOL WILL CONTINUE TO MONITOR FOR ANY CHGES.AND FOLLOW CURRENT PLAN OF CARE.
[2018-06-02 22:37] VITALS: BP 98/69
--- NOTE | 2018-06-02 23:24 | NUR ---
TRANSFERED TO ROOM 2128 VIA BED .
--- NOTE | 2018-06-02 23:28 | NUR ---
RECEIVED TO ROOM 2128 FROM MED [facility], PT A&O, VITALS STABLE. PT DENIES PAIN OR NEEDS, BED LOW, CL IN REACH.
[2018-06-03 03:47] VITALS: BP 114/82
[2018-06-03 05:51] LABS: BASOPHILS 0.1 % (0-2); EOSINOPHILS 0 % (0-7); HEMATOCRIT 44.2 % (36.0-48.0); HEMOGLOBIN 14.8 g/dL (12-16); IMMATURE GRANULOCYTES 0.2 % (0-5); LYMPHOCYTES 8.5 % (15-50); MCH 30.1 pg (26.0-34.0); MCHC 33.5 g/dL (31.0-37.0); MEAN PLATELET VOLUME 10.2 fL (7.4-10.4); MONOCYTES 0.9 % (2-11); NEUTROPHILS 90.3 % (40-80); PLATELET COUNT 320 10x3/uL (130-400); RBC 4.91 10x6/uL (4.00-5.40); RDW 13.1 % (11.5-14.5); WBC 10.3 10x3/uL (4.8-10.8)
[2018-06-03 06:26] LABS: ALBUMIN 3.7 g/dL (3.4-5.0); ALKALINE PHOSPHATASE 69 U/L (46-116); ALT (SGPT) 37 U/L (10-68); BILIRUBIN - TOTAL 0.27 mg/dL (0.2-1.3); CALCIUM 9.3 mg/dL (8.5-10.1); CARBON DIOXIDE 26.2 mmol/L (21.0-32.0); CHLORIDE - SERUM 99 mmol/L (98-107); POTASSIUM - SERUM 3.4 mmol/L (3.5-5.1); PROTEIN - SERUM 7.8 g/dL (6.4-8.2); SODIUM 134 mmol/L (136-145); TROPONIN-I < 0.017 ng/mL (0.000-0.060)
[2018-06-03 06:27] LABS: CALC OSMOLALITY 277 mosm/kg (275-300); CREATININE - SERUM 1.2 mg/dL (0.6-1.3); GLUCOSE 181 mg/dL (74-106); UREA NITROGEN 26 mg/dL (7-18); eGFR NON AFRICAN AMERICAN 51 mL/min (90-120)
--- NOTE | 2018-06-03 07:50 | NUR ---
PT SITTING UP IN BED. ALERT AND ORINTED. O2 AT 2L VIA NC. RIGHT AC 20G IV SL. PT C/O OF MIGRAINE SHE HAS HAD FOR X3 DAYS AND STATES THE MORPHINE AND TYLENOL AREN'T WORKING. AT THIS TIME DAVIN VALLADARES CAME IN PT'S ROOM AND PT STATED THE SAME THING TO HER ANPUT HER MIGRAINE DAVIN VALLADARES STATED TO PT THE MORPHINE IS PROBABLY MAKING HER MIGRAINE WORSE AND SHE WILL GET HER SOMETHING ELSE. PT'S BED LOW. CL IN REACH. PT HAS NO FURTHER NEEDS AT THIS TIME.
--- NOTE | 2018-06-03 07:55 | NUR ---
DAVIN VALLADARES GAVE ME V.O. TO DC MORPHINE.
[2018-06-03 08:26] VITALS: BP 101/69
--- NOTE | 2018-06-03 09:45 | NUR ---
STATED TO PT WE NEED TO COLLECT A UA. GAVE PT DIRECTIONS ON COLLECTION AND MEASURING HAT PLACED IN COMMODE. STTAED TO PRESS CALL LIGHT ONCE SHE URINATES IN HAT AND WE WILL COLLECT IT.
[2018-06-03 10:45] VITALS: Ht 167.6 cm; Wt 69.4 kg
--- NOTE | 2018-06-03 11:01 | NUR ---
I have reviewed this patient and I concur with the Shift Assessment completed by the Licensed Practical Nurse today this shift.
[2018-06-03 11:44] VITALS: BP 104/65
[2018-06-03 13:16] LABS: APPEARANCE HAZY (CLEAR); BACTERIA MODERATE /hpf (NONE SEEN); BILIRUBIN NEGATIVE (NEGATIVE); COLOR YELLOW (YELLOW); EPITHELIAL CELLS 0-5 /hpf (0-5); GLUCOSE 250 mg/dL (NEGATIVE); KETONE NEGATIVE (NEGATIVE); MUCUS <1+ /lpf (NONE SEEN); NITRITE NEGATIVE (NEGATIVE); PROTEIN NEGATIVE (NEGATIVE); SPECIFIC GRAVITY 1.015 (1.005-1.020); UROBILINOGEN NORMAL (NORMAL); WHITE CELLS - URINE 0-5 /hpf (0-5)
[2018-06-03 15:34] VITALS: BP 106/64
[2018-06-03 20:00] VITALS: BP 118/71
--- NOTE | 2018-06-03 20:03 | NUR ---
PT LAYING IN BED, DENIES ANY NEEDS. 2L O2 NC. PT STATES SHE IS FINE, JUST WAITING UNTILL [phone] UNTIL SHE IS ABLE TO GET HER MEDICATIONS. PT HAS NO S/S OF DISTERSS. BED LOW AND CALL LIGHT IN REACH. NAME AND DATE PLACED ON BOARD. PT WILL CALL FOR ASSIST WHEN NEEDED. WILL CPOC
--- NOTE | 2018-06-03 21:59 | NUR ---
DILAUDID GIVEN FOR 6/10 PAIN. PT SITTING UP IN BED. NO S/S OF DISTRESS. PT WILL CALL FOR ASSIST WHEN NEEDED.
[2018-06-03 23:55] VITALS: BP 107/71
--- NOTE | 2018-06-04 01:52 | NUR ---
PT ASLEEP. RESP EVEN AND UNLABORED. BEDLOW AND CALL LIGHT IN REACH. WILL CPOC
[2018-06-04 03:55] VITALS: BP 119/83
--- NOTE | 2018-06-04 04:56 | NUR ---
PT COMPLAINS OF HEADACHE AND CHEST. BILATERAL SIDES OF THE STERNUM. PT HAS NO S/S OF DISTRESS. WASHCLOTH ON FOREHEAD. PT BEDLOW AND CALL LIGHT IN REACH. WILL CPOC
--- NOTE | 2018-06-04 07:10 | NUR ---
REPORT RECIEVED FROM WARP KNITTER HELPER. PATIENT LAYING ON BACK IN BED WITH EYES CLOSED AND BREATHING EVENLY. WILL CONTINUE WITH PLAN OF CARE. SR UP X 2 BED IN LOW PSOTION AND CALL LIGHT IN REACH.
[2018-06-04 10:10] LABS: BASOPHILS 0.1 % (0-2); EOSINOPHILS 0 % (0-7); HEMATOCRIT 41.2 % (36.0-48.0); HEMOGLOBIN 14.3 g/dL (12-16); IMMATURE GRANULOCYTES 0.5 % (0-5); LYMPHOCYTES 6.9 % (15-50); MCH 31.6 pg (26.0-34.0); MCHC 34.7 g/dL (31.0-37.0); MCV 91.2 fL (80.0-100.0); MEAN PLATELET VOLUME 10.3 fL (7.4-10.4); MONOCYTES 4.5 % (2-11); RBC 4.52 10x6/uL (4.00-5.40); RDW 13.6 % (11.5-14.5)
[2018-06-04 10:19] LABS: ANION GAP 20.1 mmol/L (8-16); CARBON DIOXIDE 21.5 mmol/L (21.0-32.0); CREATININE - SERUM 1.3 mg/dL (0.6-1.3); POTASSIUM - SERUM 3.6 mmol/L (3.5-5.1)
[2018-06-04 10:23] VITALS: BP 106/71
[2018-06-04 10:30] LABS: PLATELET COUNT 388 10x3/uL (130-400); WBC 18.4 10x3/uL (4.8-10.8)
--- NOTE | 2018-06-04 12:20 | NUR ---
PATIENT COMPLAINS OF A HEADACHE AT A "10." MEDICATED PER MAR WITH DILAUDED 1 MG IV. VSS. SR UP X 2 BED IN LOW POSITION AND CALL LIGHT IN REACH.
[2018-06-04 14:36] VITALS: BP 113/67
--- NOTE | 2018-06-04 16:00 | NUR ---
PATIENT COMPLAINS OF A HEADACHE AT A "10." MEDICATED PER MAR WITH DILAUDED 1 MG IV. VSS. WILL CONTINUE TO MONITOR. SR UP X 2 BED IN LOW POSITION AND CALL LIGHT IN REACH.
[2018-06-04 16:59] VITALS: BP 124/85
--- NOTE | 2018-06-04 17:20 | NUR ---
PATIENT SITTING UP IN BED EATING SUPPER. STATES THAT HEADACHE IS BETTER. WILL CONTINUE TO MONITOR.
--- NOTE | 2018-06-04 18:58 | MORECARE ---
CASE MANAGEMENT DISCHARGE SUMMARY PATIENT: HEIDI DAVIS UNIT: [id number] ADM DATE: 06/03/18 AGE: 47 : 74 SEX: F ROOM/BED: D.5602 AUTHOR: TASNEEM,DOC PHYSICIAN: REFERRING PHYSICIAN: VERNELL BARRON MD DATE OF SERVICE: 06/04/18 Discharge Plan Patient Name: HEIDI DAVIS [facility] [facility] 1970 Planned Disposition: Home Anticipated Discharge Date: 06/04/18 Discharge Date: Expected LOS: 1 Initial Reviewer: [email or web address] Initial Review Date: 06/04/2018 Generated: 06/04/18 7:58 pm Comments DCP- Discharge Planning Updated by [email or web address]: rFeddy Donaldson on 06/04/18 5:[address] Patient Name: HEIDI DAVIS Admission Status: ER Accout number: [id number] Admission Date: 06-03-2018 : 1970 Admission Diagnosis: Attending: VRENELL BARRON Current LOS: 1 Anticipated DC Date: 06-04-2018 Planned Disposition: Home Primary Insurance: MEDICAID [place] Discharge Planning Comments: CM MET WITH PT IN ROOM TO DISCUSS DISCHARGE PLANNING AND NEEDS. PT REPORTS LIVING AT HOME INDEPENDENTLY WITH HER SPOUSE. PT HAS NEBULIZER FROM [employer]. PT HAS NO OUTSIDE SERVICES ASSISTING IN THE HOME. CM DISCUSSED AVAILABILITY OF HOME HEALTH, REHAB SERVICES AND MEDICAL EQUIPMENT. PT WANTS HOME OXYGEN. PT REPORTS HER SPOUSE MAY PICK HER UP. PT REPORTS THEY HAVE BEEN ARGUING. CM OFFERED AND PT ACCEPTED INFORMATION FOR [facility]. PT WILL THINK ABOUT HER OPTIONS AND MAY CALL HER DAUGHTER TO COME AND PICK HER UP FROM [facility], PT HAS NOT MADE ANY DECISIONS AND STILL MAY RETURN TO HER HOME WITH SPOUSE. PT CONCERNED HER MEDICAID WILL NOT COVER PRESCRIPTIONS AND REPORTS SHE MAY NEED HELP WITH THEM. CM PROVIDED AND DISCUSSED COMMUNITY RESOURCES, SPECIFICALLY [facility]. PT REPORTS UNDERSTANDING. CM OBTAINED ORDER FOR OXYGEN TESTING. CM SPOKE TO KATHLEEN OF [facility], WHO CHECKED AND VERIFIED PT'S MEDICAID IS ACTIVE AND WILL COVER PT'S MEDICATIONS. CM SPOKE TO RESPIRATORY THERAPY, BLOOD GAS WAS DRAWN AFTER PT HAD BEEN ON ROOM AIR FOR 30 MINUTES, PT DID NOT QUALIFY FOR HOME OR PORTABLE OXYGEN. CM PROVIDED PT WITH HER MEDICAID NUMBER. PT IS WAITING ON HER QUALCHOICE PRIVATE OPTION TO BE EFFECTIVE. CM EXPLAINED PT'S ACTIVE MEDICAID COVERAGE AND REFERRED PT TO [facility] DEPARTMENT OF HUMAN SERVICES, WHERE PT STATES SHE HAS ALREADY BEEN TO TAKE CARE OF THIS ISSUE. CM ADVISED PT TO SPEAK TO A METAL SMELTER AT THE [facility] OFFICE. PT REPORTS UNDERSTANDING, DENIES DISCHARGE NEEDS AT THIS TIME. Landscape Architect: Freddy Donaldson DCPIA - Discharge Planning Initial Assessment Updated by [email or web address]: Freddy Donaldson on 06/04/18 6:52 pm * Is the patient Alert and Oriented? Yes * How many steps to enter\exit or inside your home? * PCP DR. GARVIN [place] * Pharmacy [facility] [address] * Preadmission Environment Home with Family * ADLs Independent * Equipment Nebulizer * Other Equipment [facility] [place], MEDICAL EQUIPMENT PROVIDER * List name and contact numbers for known caregivers / representatives who currently or will assist patient after discharge: CRYSTAL DAVIS, SPOUSE, * Verbal permission to speak to the caregivers and representatives has been obtained from the patient. N/A * Community resources currently utilized None * Please name any agencies selected above. NONE * Additional services required to return to the preadmission environment? No * Can the patient safely return to the preadmission environment? Yes * Has this patient been hospitalized within the prior 30 days at any hospital? No Patient Name: HEIDI DAVIS Page [phone] at 1858 All edits/amendments must be made on the electronic document DICTATION DATE: 06/04/181856 APPLICATION DEVELOPMENT CONSULTANT: BETSEY 06/04/181856 RPT#: [id number] DC DATE: STATUS: ADM IN [facility] [address] [facility] [place] [address] END OF REPORT
[2018-06-04 20:32] VITALS: BP 126/74
[2018-06-05 00:04] VITALS: BP 101/59
[2018-06-05 05:33] LABS: BASOPHILS 0.1 % (0-2); EOSINOPHILS 0 % (0-7); HEMATOCRIT 40.5 % (36.0-48.0); HEMOGLOBIN 13.3 g/dL (12-16); IMMATURE GRANULOCYTES 1.3 % (0-5); LYMPHOCYTES 9.4 % (15-50); MCH 30.2 pg (26.0-34.0); MCHC 32.8 g/dL (31.0-37.0); MEAN PLATELET VOLUME 10.3 fL (7.4-10.4); MONOCYTES 4.5 % (2-11); NEUTROPHILS 84.7 % (40-80); PLATELET COUNT 339 10x3/uL (130-400); RDW 13.5 % (11.5-14.5); WBC 14.1 10x3/uL (4.8-10.8)
[2018-06-05 05:50] LABS: ANION GAP 14.5 mmol/L (8-16); CALCIUM 8.5 mg/dL (8.5-10.1); CARBON DIOXIDE 25.5 mmol/L (21.0-32.0); CREATININE - SERUM 1.2 mg/dL (0.6-1.3)
[2018-06-05 06:04] VITALS: BP 130/93
--- NOTE | 2018-06-05 07:40 | NUR ---
ASSESSMENT COMPLETED. ALERT AND ORIENTED. 02 AT 2 LM PER NC, UP AB RICARDO. RIGHT HAND SL, PATENT. NO NEEDS VOICED. WILL MONITOR
[2018-06-05 07:53] VITALS: BP 109/72
--- NOTE | 2018-06-05 08:42 | MORECARE ---
CASE MANAGEMENT DISCHARGE SUMMARY PATIENT: HEIDI DAVIS UNIT: [id number] ADM DATE: 06/03/18 AGE: 47 : 74 SEX: F ROOM/BED: D.3900 AUTHOR: TASNEEM,DOC PHYSICIAN: REFERRING PHYSICIAN: VERNELL BARRON MD DATE OF SERVICE: 06/05/18 Discharge Plan Patient Name: HEIDI DAVIS [facility] [facility] 1970 Planned Disposition: Home Anticipated Discharge Date: 06/04/18 Discharge Date: Expected LOS: 1 Initial Reviewer: [email or web address] Initial Review Date: 06/04/2018 Generated: 06/05/18 9:41 am Comments DCP- Discharge Planning Updated by [email or web address]: Freddy Donaldson on 06/04/18 5:[address] Patient Name: HEIDI DAVIS Admission Status: ER Accout number: [id number] Admission Date: 06-03-2018 : 1970 Admission Diagnosis: Attending: VERNELL BARRON Current LOS: 1 Anticipated DC Date: 06-04-2018 Planned Disposition: Home Primary Insurance: MEDICAID [place] Discharge Planning Comments: CM MET WITH PT IN ROOM TO DISCUSS DISCHARGE PLANNING AND NEEDS. PT REPORTS LIVING AT HOME INDEPENDENTLY WITH HER SPOUSE. PT HAS NEBULIZER FROM [employer]. PT HAS NO OUTSIDE SERVICES ASSISTING IN THE HOME. CM DISCUSSED AVAILABILITY OF HOME HEALTH, REHAB SERVICES AND MEDICAL EQUIPMENT. PT WANTS HOME OXYGEN. PT REPORTS HER SPOUSE MAY PICK HER UP. PT REPORTS THEY HAVE BEEN ARGUING. CM OFFERED AND PT ACCEPTED INFORMATION FOR [facility]. PT WILL THINK ABOUT HER OPTIONS AND MAY CALL HER DAUGHTER TO COME AND PICK HER UP FROM [facility], PT HAS NOT MADE ANY DECISIONS AND STILL MAY RETURN TO HER HOME WITH SPOUSE. PT CONCERNED HER MEDICAID WILL NOT COVER PRESCRIPTIONS AND REPORTS SHE MAY NEED HELP WITH THEM. CM PROVIDED AND DISCUSSED COMMUNITY RESOURCES, SPECIFICALLY [facility] FOR EMERGENCY ASSISTANCE. PT REPORTS UNDERSTANDING. CM OBTAINED ORDER FOR OXYGEN TESTING. CM SPOKE TO KATHLEEN OF [facility], WHO CHECKED AND VERIFIED PT'S MEDICAID IS ACTIVE AND WILL COVER PT'S MEDICATIONS. CM SPOKE TO RESPIRATORY THERAPY, BLOOD GAS WAS DRAWN AFTER PT HAD BEEN ON ROOM AIR FOR 30 MINUTES, PT DID NOT QUALIFY FOR HOME OR PORTABLE OXYGEN. CM PROVIDED PT WITH HER MEDICAID NUMBER. PT IS WAITING ON HER QUALCHOICE PRIVATE OPTION TO BE EFFECTIVE. CM EXPLAINED PT'S ACTIVE MEDICAID COVERAGE AND REFERRED PT TO [facility] DEPARTMENT OF HUMAN SERVICES, WHERE PT STATES SHE HAS ALREADY BEEN TO TAKE CARE OF THIS ISSUE. CM ADVISED PT TO SPEAK TO A RESERVOIR CARETAKER AT THE [facility] OFFICE. PT REPORTS UNDERSTANDING, DENIES DISCHARGE NEEDS AT THIS TIME. Customer Support Professional: Freddy Donaldson DCPIA - Discharge Planning Initial Assessment Updated by [id number]: Freddy Donaldson on 06/04/18 6:52 pm * Is the patient Alert and Oriented? Yes * How many steps to enter\exit or inside your home? * PCP DR. GARVIN [place] * Pharmacy [facility] [address] * Preadmission Environment Home with Family * ADLs Independent * Equipment Nebulizer * Other Equipment [facility] [place], MEDICAL EQUIPMENT PROVIDER * List name and contact numbers for known caregivers / representatives who currently or will assist patient after discharge: CRYSTAL DAVIS, SPOUSE, * Verbal permission to speak to the caregivers and representatives has been obtained from the patient. N/A * Community resources currently utilized None * Please name any agencies selected above. NONE * Additional services required to return to the preadmission environment? No * Can the patient safely return to the preadmission environment? Yes * Has this patient been hospitalized within the prior 30 days at any hospital? No Last DP export: 06/04/18 5:58 p Patient Name: HEIDI DAVIS Page [phone] at 0842 All edits/amendments must be made on the electronic document DICTATION DATE: 06/05/18840 BRAZER ASSEMBLER: BETSEY 06/05/18840 RPT#: [id number] DC DATE: STATUS: ADM IN [facility] [address] [place] [address] END OF REPORT
[2018-06-05] MEDS ORDERED: ZITHROMAX250 MG PO (10:01)
[2018-06-05] MEDS ORDERED: SINGULAIR10 MG PO (10:02)
[2018-06-05] MEDS ORDERED: FLUTICASONE PRO16 GM NASAL (10:02)
[2018-06-05] MEDS ORDERED: OMNICEF300 MG PO (10:02)
[2018-06-05] MEDS ORDERED: PREDNISONE20 MG PO (10:03)
[2018-06-05 11:18] VITALS: BP 117/79
--- NOTE | 2018-06-05 13:06 | MORECARE ---
CASE MANAGEMENT DISCHARGE SUMMARY PATIENT: HEIDI DAVIS UNIT: [id number] ADM DATE: 06/03/18 AGE: 47 : 74 SEX: F ROOM/BED: D.1572 AUTHOR: TASNEEM,DOC PHYSICIAN: REFERRING PHYSICIAN: VERNELL BARRON MD DATE OF SERVICE: 06/05/18 Discharge Plan Patient Name: HEIDI DAVIS [facility] [facility] 1970 Planned Disposition: Home Anticipated Discharge Date: 06/05/18 Discharge Date: Expected LOS: 2 Initial Reviewer: [email or web address] Initial Review Date: 06/04/2018 Generated: 06/05/18 2:05 pm Comments DCP- Discharge Planning Updated by [id number]: Freddy Donaldson on 06/04/18 5:[address] Patient Name: HEIDI DAVIS Admission Status: ER Accout number: [id number] Admission Date: 06-03-2018 : 1970 Admission Diagnosis: Attending: VERNELL BARRON Current LOS: 1 Anticipated DC Date: 06-04-2018 Planned Disposition: Home Primary Insurance: MEDICAID [place] Discharge Planning Comments: CM MET WITH PT IN ROOM TO DISCUSS DISCHARGE PLANNING AND NEEDS. PT REPORTS LIVING AT HOME INDEPENDENTLY WITH HER SPOUSE. PT HAS NEBULIZER FROM [employer]. PT HAS NO OUTSIDE SERVICES ASSISTING IN THE HOME. CM DISCUSSED AVAILABILITY OF HOME HEALTH, REHAB SERVICES AND MEDICAL EQUIPMENT. PT WANTS HOME OXYGEN. PT REPORTS HER SPOUSE MAY PICK HER UP. PT REPORTS THEY HAVE BEEN ARGUING. CM OFFERED AND PT ACCEPTED INFORMATION FOR [facility]. PT WILL THINK ABOUT HER OPTIONS AND MAY CALL HER DAUGHTER TO COME AND PICK HER UP FROM [facility], PT HAS NOT MADE ANY DECISIONS AND STILL MAY RETURN TO HER HOME WITH SPOUSE. PT CONCERNED HER MEDICAID WILL NOT COVER PRESCRIPTIONS AND REPORTS SHE MAY NEED HELP WITH THEM. CM PROVIDED AND DISCUSSED COMMUNITY RESOURCES, SPECIFICALLY [facility] FOR EMERGENCY ASSISTANCE. PT REPORTS UNDERSTANDING. CM OBTAINED ORDER FOR OXYGEN TESTING. CM SPOKE TO KATHLEEN OF [employer], WHO CHECKED AND VERIFIED PT'S MEDICAID IS ACTIVE AND WILL COVER PT'S MEDICATIONS. CM SPOKE TO RESPIRATORY THERAPY, BLOOD GAS WAS DRAWN AFTER PT HAD BEEN ON ROOM AIR FOR 30 MINUTES, PT DID NOT QUALIFY FOR HOME OR PORTABLE OXYGEN. CM PROVIDED PT WITH HER MEDICAID NUMBER. PT IS WAITING ON HER QUALCHOICE PRIVATE OPTION TO BE EFFECTIVE. CM EXPLAINED PT'S ACTIVE MEDICAID COVERAGE AND REFERRED PT TO [facility] DE[facility], WHERE PT STATES SHE HAS ALREADY BEEN TO TAKE CARE OF THIS ISSUE. CM ADVISED PT TO SPEAK TO A ROAD DESIGN DRAFTSPERSON AT THE [facility] OFFICE. PT REPORTS UNDERSTANDING, DENIES DISCHARGE NEEDS AT THIS TIME. Family Service Aide: Freddy Donaldson DCPIA - Discharge Planning Initial Assessment Updated by [email or web address]: Freddy Donaldson on 06/04/18 6:52 pm * Is the patient Alert and Oriented? Yes * How many steps to enter\exit or inside your home? * PCP DR. GARVIN [place] * Pharmacy [facility] ON [address] * Preadmission Environment Home with Family * ADLs Independent * Equipment Nebulizer * Other Equipment [facility] [place], MEDICAL EQUIPMENT PROVIDER * List name and contact numbers for known caregivers / representatives who currently or will assist patient after discharge: CRYSTAL DAVIS, SPOUSE, * Verbal permission to speak to the caregivers and representatives has been obtained from the patient. N/A * Community resources currently utilized None * Please name any agencies selected above. NONE * Additional services required to return to the preadmission environment? No * Can the patient safely return to the preadmission environment? Yes * Has this patient been hospitalized within the prior 30 days at any hospital? No Last DP export: 06/05/18 7:41 a Patient Name: HEIDI DAVIS Page [phone] at 1306 All edits/amendments must be made on the electronic document DICTATION DATE: 06/05/18 1305 EXPANDER MACHINE OPERATOR: BETSEY 06/05/18 1305 RPT#: [id number] ME DATE: STATUS: ADM IN [facility] [address] [place] [address] END OF REPORT
--- NOTE | 2018-06-05 13:13 | MORECARE ---
CASE MANAGEMENT DISCHARGE SUMMARY PATIENT: HEIDI DAVIS UNIT: [id number] ADM DATE: 06/03/18 AGE: 47 : 74 SEX: F ROOM/BED: D.6628 AUTHOR: TASNEEM,DOC PHYSICIAN: REFERRING PHYSICIAN: VERNELL BARRON MD DATE OF SERVICE: 06/05/18 Discharge Plan Patient Name: HEIDI DAVIS [facility] [facility] 1970 Planned Disposition: Home Anticipated Discharge Date: 06/05/18 Discharge Date: Expected LOS: 2 Initial Reviewer: [email or web address] Initial Review Date: 06/04/2018 Generated: 06/05/18 2:12 pm Comments DCP- Discharge Planning Updated by [email or web address]: Freddy Donaldson on 06/04/18 5:[address] Patient Name: HEIDI DAVIS Admission Status: ER Accout number: [id number] Admission Date: 06-03-2018 : 1970 Admission Diagnosis: Attending: VERNELL BARRON Current LOS: 1 Anticipated DC Date: 06-04-2018 Planned Disposition: Home Primary Insurance: MEDICAID [place] Discharge Planning Comments: CM MET WITH PT IN ROOM TO DISCUSS DISCHARGE PLANNING AND NEEDS. PT REPORTS LIVING AT HOME INDEPENDENTLY WITH HER SPOUSE. PT HAS NEBULIZER FROM [employer]. PT HAS NO OUTSIDE SERVICES ASSISTING IN THE HOME. CM DISCUSSED AVAILABILITY OF HOME HEALTH, REHAB SERVICES AND MEDICAL EQUIPMENT. PT WANTS HOME OXYGEN. PT REPORTS HER SPOUSE MAY PICK HER UP. PT REPORTS THEY HAVE BEEN ARGUING. CM OFFERED AND PT ACCEPTED INFORMATION FOR [facility]. PT WILL THINK ABOUT HER OPTIONS AND MAY CALL HER DAUGHTER TO COME AND PICK HER UP FROM [facility], PT HAS NOT MADE ANY DECISIONS AND STILL MAY RETURN TO HER HOME WITH SPOUSE. PT CONCERNED HER MEDICAID WILL NOT COVER PRESCRIPTIONS AND REPORTS SHE MAY NEED HELP WITH THEM. CM PROVIDED AND DISCUSSED COMMUNITY RESOURCES, SPECIFICALLY [facility] FOR EMERGENCY ASSISTANCE. PT REPORTS UNDERSTANDING. CM OBTAINED ORDER FOR OXYGEN TESTING. CM SPOKE TO KATHLEEN OF [employer], WHO CHECKED AND VERIFIED PT'S MEDICAID IS ACTIVE AND WILL COVER PT'S MEDICATIONS. CM SPOKE TO RESPIRATORY THERAPY, BLOOD GAS WAS DRAWN AFTER PT HAD BEEN ON ROOM AIR FOR 30 MINUTES, PT DID NOT QUALIFY FOR HOME OR PORTABLE OXYGEN. CM PROVIDED PT WITH HER MEDICAID NUMBER. PT IS WAITING ON HER QUALCHOICE PRIVATE OPTION TO BE EFFECTIVE. CM EXPLAINED PT'S ACTIVE MEDICAID COVERAGE AND REFERRED PT TO [facility] DEPARTMENT OF HUMAN SERVICES, WHERE PT STATES SHE HAS ALREADY BEEN TO TAKE CARE OF THIS ISSUE. CM ADVISED PT TO SPEAK TO A SWAGE TENDER AT THE [facility] OFFICE. PT REPORTS UNDERSTANDING, DENIES DISCHARGE NEEDS AT THIS TIME. Sr. Director: Freddy Donaldson DCPIA - Discharge Planning Initial Assessment Updated by [email or web address]: Freddy Donaldson on 06/04/18 6:52 pm * Is the patient Alert and Oriented? Yes * How many steps to enter\exit or inside your home? * PCP LINUS [facility] * Pharmacy [facility] [address] * Preadmission Environment Home with Family * ADLs Independent * Equipment Nebulizer * Other Equipment [facility], MEDICAL EQUIPMENT PROVIDER * List name and contact numbers for known caregivers / representatives who currently or will assist patient after discharge: CRYSTAL DAVIS, SPOUSE, * Verbal permission to speak to the caregivers and representatives has been obtained from the patient. N/A * Community resources currently utilized None * Please name any agencies selected above. NONE * Additional services required to return to the preadmission environment? No * Can the patient safely return to the preadmission environment? Yes * Has this patient been hospitalized within the prior 30 days at any hospital? No External Providers External Provider: Trino Farris Next Contact Date: 06/05/2018 Service Request Date: Service Type: Resolution: Reviewer: Comments: Last DP export: 06/05/18 12:05 p Patient Name: HEIDI DAVIS Page [phone] at 1313 All edits/amendments must be made on the electronic document DICTATION DATE: 06/05/18 131 PEDIATRIC GENETIC COUNSELOR: BETSEY 06/05/18 1312 RPT#: [id number] DC DATE: STATUS: ADM IN [facility] [address] [place] [place] [address] END OF REPORT
--- NOTE | 2018-06-05 13:36 | MORECARE ---
CASE MANAGEMENT DISCHARGE SUMMARY PATIENT: HEIDI DAVIS UNIT: [id number] ADM DATE: 06/03/18 AGE: 47 : 74 SEX: F ROOM/BED: D.9382 AUTHOR: TASNEEM,DOC PHYSICIAN: REFERRING PHYSICIAN: VERNELL BARRON MD DATE OF SERVICE: 06/05/18 Discharge Plan Patient Name: HEIDI DAVIS Facility: [facility]:[place] : 1970 Planned Disposition: Home Anticipated Discharge Date: 06/05/18 Discharge Date: Expected LOS: 2 Initial Reviewer: JUSTIN Initial Review Date: 06/04/2018 Generated: 06/05/18 2:36 pm Comments DCP- Discharge Planning Updated by JUSTIN: Freddy Donaldson on 06/05/18 12:[address] Patient Name: HEIDI DAVIS Encounter No: [id number] : 1970 Primary Insurance: MEDICAID [place] Anticipated DC Date: 06-05-2018 Planned Disposition: Home DCP follow-up note: CM RECEIVED NEW OXYGEN TESTING, PT'S ABG QUALIFIES FOR HOME AND PORTABLE OXYGEN. CM MET WITH PT IN ROOM, DISCUSSED PROVIDERS, CM PROVIDED PT WITH MEDICAL EQUIPMENT PROVIDER LISTING. PT SIGNED CHOICE LETTER FOR [facility]. CM PROVIDED PT WITH BUS PASS FOR TRANSPORT HOME, PT CONFIRMED THAT THE [employer] BUS DOES RUN TO HER HOME AREA. PT REPORTS ABILITY TO TAKE THE BUS HOME. PT ASKED FOR THE DOCTOR TO PRESCRIBE HER HOME MEDICATIONS. CM ADVISED THAT THE DOCTOR DOES NOT NORMALLY PROVIDE PRESCRIPTIONS FOR HOME MEDICATIONS. PT ASKED CM TO ASK THE DOCTOR. CM ASKED JACQUELYN PEREA WHO DIRECTED THAT PT FOLLOW UP WITH HER PRIMARY DOCTOR. CM NOTIFIED PT. PT WILL FOLLOW UP WITH MEDICAID CLINIC IN [place] UNTIL HER OTHER INSURANCE BECOMES EFFECTIVE. CM CALLED [facility], , SPOKE TO SERVANDO AND PROVIDED REFERRAL INFORMATION. CM FAXED REFERRAL TO [facility] AT [phone]. [facility] TO DELIVER PORTABLE OXYGEN TO PT'S HOSPITAL ROOM FOR DISCHARGE HOME. [facility] TO ARRANGE HOME OXYGEN AT PT'S HOME AFTER HER ARRIVAL AT HOME. NUDE MODEL NURSE NOTIFIED. Freddy Donaldson CASE MANAGEMENT DCP- Discharge Planning Updated by [id number]: Freddy Donaldson on 06/04/18 5:[address] Patient Name: HEIDI DAVIS Admission Status: ER Accout number: [id number] Admission Date: 06-03-2018 : 1970 Admission Diagnosis: Attending: VERNELL BARRON Current LOS: 1 Anticipated DC Date: 06-04-2018 Planned Disposition: Home Primary Insurance: MEDICAID [place] Discharge Planning Comments: CM MET WITH PT IN ROOM TO DISCUSS DISCHARGE PLANNING AND NEEDS. PT REPORTS LIVING AT HOME INDEPENDENTLY WITH HER SPOUSE. PT HAS NEBULIZER FROM [employer]. PT HAS NO OUTSIDE SERVICES ASSISTING IN THE HOME. CM DISCUSSED AVAILABILITY OF HOME HEALTH, REHAB SERVICES AND MEDICAL EQUIPMENT. PT WANTS HOME OXYGEN. PT REPORTS HER SPOUSE MAY PICK HER UP. PT REPORTS THEY HAVE BEEN ARGUING. CM OFFERED AND PT ACCEPTED INFORMATION FOR [facility]. PT WILL THINK ABOUT HER OPTIONS AND MAY CALL HER DAUGHTER TO COME AND PICK HER UP FROM [facility], PT HAS NOT MADE ANY DECISIONS AND STILL MAY RETURN TO HER HOME WITH SPOUSE. PT CONCERNED HER MEDICAID WILL NOT COVER PRESCRIPTIONS AND REPORTS SHE MAY NEED HELP WITH THEM. CM PROVIDED AND DISCUSSED COMMUNITY RESOURCES, SPECIFICALLY [facility] FOR EMERGENCY ASSISTANCE. PT REPORTS UNDERSTANDING. CM OBTAINED ORDER FOR OXYGEN TESTING. CM SPOKE TO KATHLEEN OF [employer], WHO CHECKED AND VERIFIED PT'S MEDICAID IS ACTIVE AND WILL COVER PT'S MEDICATIONS. CM SPOKE TO RESPIRATORY THERAPY, BLOOD GAS WAS DRAWN AFTER PT HAD BEEN ON ROOM AIR FOR 30 MINUTES, PT DID NOT QUALIFY FOR HOME OR PORTABLE OXYGEN. CM PROVIDED PT WITH HER MEDICAID NUMBER. PT IS WAITING ON HER QUALCHOICE PRIVATE OPTION TO BE EFFECTIVE. CM EXPLAINED PT'S ACTIVE MEDICAID COVERAGE AND REFERRED PT TO [facility] DEPARTMENT OF HUMAN SERVICES, WHERE PT STATES SHE HAS ALREADY BEEN TO TAKE CARE OF THIS ISSUE. CM ADVISED PT TO SPEAK TO A FRAME FIXER AT THE [facility] OFFICE. PT REPORTS UNDERSTANDING, DENIES DISCHARGE NEEDS AT THIS TIME. Manufacturing Cost Estimator: Freddy Donaldson DCPIA - Discharge Planning Initial Assessment Updated by [id number]: Freddy Donaldson on 06/04/18 6:52 pm * Is the patient Alert and Oriented? Yes * How many steps to enter\exit or inside your home? * PCP LINUS BARLOW * Pharmacy [facility] [address] * Preadmission Environment Home with Family * ADLs Independent * Equipment Nebulizer * Other Equipment [facility] [place], MEDICAL EQUIPMENT PROVIDER * List name and contact numbers for known caregivers / representatives who currently or will assist patient after discharge: CRYSTAL DAVIS, SPOUSE, * Verbal permission to speak to the caregivers and representatives has been obtained from the patient. N/A * Community resources currently utilized None * Please name any agencies selected above. NONE * Additional services required to return to the preadmission environment? No * Can the patient safely return to the preadmission environment? Yes * Has this patient been hospitalized within the prior 30 days at any hospital? No Coverage Notice Reviewer: [id number] Hugh Donaldson Notice Issued Date-Time: 06/05/2018 12:45 Notice Type: Patient Choice Letter Notice Delivered To: Patient Relationship to Patient: Intelligence Analyst Name: Delivery Method: HAND - Hand Delivered Tracy Days: Prior Verbal Notification: Recipient Understood Notice: Yes Recipient Signature: Yes Med Rec Note Co-signed by Attending: Coverage Notice Comment: JAMES Barrios DP export: 06/05/18 12:12 p Patient Name: HEIDI DAVIS Page [id number] at 1336 All edits/amendments must be made on the electronic document DICTATION DATE: 06/05/18 1336 PUBLICITY MANAGER: BETSEY 06/05/18 1336 RPT#: [id number] DC DATE: STATUS: ADM IN [facility] [address] [place] [address] END OF REPORT
--- NOTE | 2018-06-05 15:20 | NUR ---
DCD. IV TAKEN OUT. TIP INTACT. INSTRUCTIONS GIVEN TO PT. TO DOWN STAIRS PER WHEEL CHAIR
== END 2018-06-05 15:22 | disposition home or self-care (01) | DRG 196 ==
LOC: D.ER 10:25 → D.MS 12:13 → D.M2 12:13 → D.EDHOLD 12:13 → OBSVTIME 12:19 → D.MS 14:52 → D.M2 23:23
PROVIDERS: Family Medicine; ADMIT Internal Medicine Nephrology; ATTEND Internal Medicine Nephrology
DX: J84.9 Interstitial pulmonary disease, unspecified (principal); J96.01 Acute respiratory failure with hypoxia; J44.1 Chronic obstructive pulmonary disease with (acute) exacerbation; F17.213 Nicotine dependence, cigarettes, with withdrawal; J98.11 Atelectasis; M79.7 Fibromyalgia; F41.9 Anxiety disorder, unspecified; K21.9 Gastro-esophageal reflux disease without esophagitis; D64.9 Anemia, unspecified; G43.909 Migraine, unspecified, not intractable, without status migrainosus; J32.0 Chronic maxillary sinusitis; J84.115 Respiratory bronchiolitis interstitial lung disease

== ENCOUNTER 2018-09-08 11:52 | Emergency (ER) | payer OTHER ==
[~2018-09-08] VITALS: Ht 167.6 cm; Wt 65.9 kg
[~2018-09-08 11:52] MED LIST changes: +FLUTICASONE PRO16 GM NASAL; +PREDNISONE20 MG PO; +SINGULAIR10 MG PO
[2018-09-08 12:01] VITALS: Ht 167.6 cm; Wt 65.9 kg
[2018-09-08] MEDS ORDERED: MAXZIDE 75/501 TAB PO (12:07)
[2018-09-08] MEDS ORDERED: TRAZODONE HCL150 MG PO (12:07)
[2018-09-08 12:33] LABS: BASOPHILS 0.3 % (0-2); EOSINOPHILS 2.6 % (0-7); HEMATOCRIT 44.1 % (36.0-48.0); HEMOGLOBIN 15.5 g/dL (12-16); IMMATURE GRANULOCYTES 0.2 % (0-5); LYMPHOCYTES 27.7 % (15-50); MCH 31.2 pg (26.0-34.0); MCHC 35.1 g/dL (31.0-37.0); MCV 88.7 fL (80.0-100.0); MEAN PLATELET VOLUME 9.4 fL (7.4-10.4); NEUTROPHILS 62.2 % (40-80); RBC 4.97 10x6/uL (4.00-5.40); WBC 9.4 10x3/uL (4.8-10.8)
[2018-09-08 12:35] LABS: PLATELET COUNT 258 10x3/uL (130-400)
[2018-09-08 12:42] LABS: APTT 23.9 SECONDS (22.8-39.4); INR 0.91 (0.85-1.17); PROTIME 11.7 SECONDS (11.6-15.0)
[2018-09-08 12:51] LABS: ALBUMIN 3.6 g/dL (3.4-5.0); ALKALINE PHOSPHATASE 53 U/L (46-116); ALT (SGPT) 38 U/L (10-68); BILIRUBIN - TOTAL 0.19 mg/dL (0.2-1.3); CALC OSMOLALITY 287 mosm/kg (275-300); CALCIUM 8.8 mg/dL (8.5-10.1); CARBON DIOXIDE 30.2 mmol/L (21.0-32.0); CHLORIDE - SERUM 102 mmol/L (98-107); CREATININE - SERUM 1.6 mg/dL (0.6-1.3); GLUCOSE 109 mg/dL (74-106); POTASSIUM - SERUM 3.7 mmol/L (3.5-5.1); SODIUM 140 mmol/L (136-145); UREA NITROGEN 35 mg/dL (7-18); eGFR NON AFRICAN AMERICAN 37 mL/min (90-120)
[2018-09-08 13:14] LABS: CKMB 2.6 U/L (0.0-3.6); CREATINE KINASE 220 UL (21-215); MAGNESIUM - SERUM 2.3 mg/dL (1.8-2.4)
[2018-09-08 13:18] LABS: TROPONIN-I < 0.017 ng/mL (0.000-0.060)
[2018-09-08] MEDS ORDERED: ULTRAM50 MG PO (15:35)
[2018-09-08 15:57] VITALS: BP 112/68
== END 2018-09-08 15:58 | disposition home or self-care (01) ==
LOC: D.ER 11:52
PROVIDERS: Family Medicine
DX: R07.81 Pleurodynia (principal); E86.0 Dehydration

== ENCOUNTER 2018-12-11 23:35 | Emergency (ER) | payer OTHER ==
[~2018-12-11] VITALS: Ht 167.6 cm; Wt 64.5 kg
[~2018-12-11 23:35] MED LIST changes: +MAXZIDE 75/501 TAB PO; +TRAZODONE HCL150 MG PO; +ULTRAM50 MG PO
[2018-12-11 23:42] VITALS: Ht 167.6 cm; Wt 64.5 kg
[2018-12-11] MEDS ORDERED: WELLBUTRIN SR150 MG PO (23:46)
[2018-12-11 23:58] LABS: HEMATOCRIT 41.9 % (36.0-48.0); HEMOGLOBIN 14.7 g/dL (12-16); LYMPHOCYTES 31.1 % (15-50); MCHC 35.1 g/dL (31.0-37.0); MCV 91.3 fL (80.0-100.0); MEAN PLATELET VOLUME 8.6 fL (7.4-10.4); NEUTROPHILS 61.2 % (40-80); PLATELET COUNT 229 10x3/uL (130-400); RBC 4.59 10x6/uL (4.00-5.40); RDW 12.5 % (11.5-14.5)
[2018-12-12 00:14] LABS: ALBUMIN 3.8 g/dL (3.4-5.0); ANION GAP 10.5 mmol/L (8-16); BILIRUBIN - TOTAL 0.25 mg/dL (0.2-1.3); CALCIUM 8.9 mg/dL (8.5-10.1); CARBON DIOXIDE 29.6 mmol/L (21.0-32.0); POTASSIUM - SERUM 4.1 mmol/L (3.5-5.1); PROTEIN - SERUM 6.9 g/dL (6.4-8.2)
[2018-12-12] MEDS ORDERED: FLUTICASONE PRO16 GM NASAL (00:36)
[2018-12-12] MEDS ORDERED: AUGMENTIN 875-11 TAB PO (00:36)
[2018-12-12 01:28] VITALS: BP 126/72
== END 2018-12-12 01:27 | disposition home or self-care (01) ==
LOC: D.ER 23:35
PROVIDERS: Family Medicine
DX: J01.90 Acute sinusitis, unspecified (principal); J44.9 Chronic obstructive pulmonary disease, unspecified

== ENCOUNTER 2019-02-02 17:13 | Emergency (ER) | payer SELFPAY ==
[~2019-02-02] VITALS: Ht 167.6 cm; Wt 62.7 kg
[~2019-02-02 17:13] MED LIST changes: +AUGMENTIN 875-11 TAB PO; +WELLBUTRIN SR150 MG PO
[2019-02-02 17:19] VITALS: Ht 167.6 cm; Wt 62.7 kg
[2019-02-02 18:36] LABS: ANION GAP 12.7 mmol/L (8-16); CALCIUM 9.5 mg/dL (8.5-10.1); CARBON DIOXIDE 29.2 mmol/L (21.0-32.0); CREATININE - SERUM 1.1 mg/dL (0.6-1.3); POTASSIUM - SERUM 3.9 mmol/L (3.5-5.1)
[2019-02-02 18:40] LABS: HEMATOCRIT 44.4 % (36.0-48.0); HEMOGLOBIN 14.7 g/dL (12-16); MCH 30.8 pg (26.0-34.0); MCHC 33.1 g/dL (31.0-37.0); MCV 92.9 fL (80.0-100.0); MEAN PLATELET VOLUME 9.3 fL (7.4-10.4); PLATELET COUNT 335 10x3/uL (130-400); RBC 4.78 10x6/uL (4.00-5.40); RDW 13.4 % (11.5-14.5); WBC 21.3 10x3/uL (4.8-10.8)
[2019-02-02 18:42] LABS: ALBUMIN 3.7 g/dL (3.4-5.0); BILIRUBIN - TOTAL 0.22 mg/dL (0.2-1.3); PROTEIN - SERUM 7.9 g/dL (6.4-8.2)
[2019-02-02 18:55] LABS: APPEARANCE CLEAR (CLEAR); BILIRUBIN NEGATIVE (NEGATIVE); COLOR STRAW (YELLOW); GLUCOSE NEGATIVE (NEGATIVE); KETONE NEGATIVE (NEGATIVE); NITRITE NEGATIVE (NEGATIVE); PROTEIN NEGATIVE (NEGATIVE); UROBILINOGEN NORMAL (NORMAL)
[2019-02-02] MEDS ORDERED: ALBUTEROL SULF8.5 GM INH (19:11)
[2019-02-02 19:14] LABS: UDS - AMPHET NEGATIVE QUAL (NEGATIVE); UDS - BARB NEGATIVE QUAL (NEGATIVE); UDS - BENZO POSITIVE QUAL (NEGATIVE); UDS - COCAINE NEGATIVE QUAL (NEGATIVE); UDS - OPIATE POSITIVE QUAL (NEGATIVE); UDS - PCP NEGATIVE QUAL (NEGATIVE); UDS - THC NEGATIVE QUAL (NEGATIVE)
[2019-02-02 19:20] LABS: EOSINOPHILS 3 % (0-7); LYMPHOCYTES 16 % (15-50); MONOCYTES 3 % (2-11); NEUTROPHILS 78 % (40-80); PLATELET ESTIMATE NORMAL
[2019-02-02] MEDS ORDERED: LEVOFLOXACIN500 MG PO (19:27)
[2019-02-02] MEDS ORDERED: TENORMIN50 MG PO (19:27)
[2019-02-02] MEDS ORDERED: HYDROCODON-ACE1 EAC7 PO (19:54)
[2019-02-02 20:05] VITALS: BP 157/105
== END 2019-02-02 20:05 | disposition home or self-care (01) ==
LOC: D.ER 17:13
PROVIDERS: Emergency Medicine
DX: I10 Essential (primary) hypertension (principal); Z72.0 Tobacco use; J20.9 Acute bronchitis, unspecified; R00.2 Palpitations; G43.809 Other migraine, not intractable, without status migrainosus; J44.9 Chronic obstructive pulmonary disease, unspecified

== ENCOUNTER 2019-03-11 11:02 | Emergency (ER) | payer MEDICAID ==
[~2019-03-11] VITALS: Ht 167.6 cm; Wt 65.9 kg
[~2019-03-11 11:02] MED LIST changes: +ALBUTEROL SULF8.5 GM INH; +HYDROCODON-ACE1 EAC7 PO; +LEVOFLOXACIN500 MG PO; +TENORMIN50 MG PO
[2019-03-11 11:09] VITALS: Ht 167.6 cm; Wt 65.9 kg
[2019-03-11] MEDS ORDERED: ALBUTEROL SULF8.5 GM INH (13:05)
[2019-03-11 13:24] VITALS: BP 124/73
== END 2019-03-11 13:25 | disposition home or self-care (01) ==
LOC: D.ER 11:02
DX: J00 Acute nasopharyngitis [common cold] (principal); Z72.0 Tobacco use; I10 Essential (primary) hypertension; J44.9 Chronic obstructive pulmonary disease, unspecified; F32.9 Major depressive disorder, single episode, unspecified

== ENCOUNTER 2019-07-18 19:14 | Emergency (ER) | payer MEDICAID ==
[~2019-07-18] VITALS: Ht 167.6 cm; Wt 63.6 kg
[2019-07-18 19:23] VITALS: Ht 167.6 cm; Wt 63.6 kg
[2019-07-18 19:50] LABS: BASOPHILS 0.5 % (0-2); EOSINOPHILS 4.2 % (0-7); HEMATOCRIT 41.8 % (36.0-48.0); HEMOGLOBIN 13.6 g/dL (12-16); IMMATURE GRANULOCYTES 0.2 % (0-5); LYMPHOCYTES 41.9 % (15-50); MCH 30.1 pg (26.0-34.0); MCHC 32.5 g/dL (31.0-37.0); MCV 92.5 fL (80.0-100.0); MEAN PLATELET VOLUME 9.1 fL (7.4-10.4); MONOCYTES 7.1 % (2-11); NEUTROPHILS 46.1 % (40-80); PLATELET COUNT 216 10x3/uL (130-400); RBC 4.52 10x6/uL (4.00-5.40); RDW 13.2 % (11.5-14.5); WBC 8.6 10x3/uL (4.8-10.8)
[2019-07-18 20:09] LABS: BILIRUBIN NEGATIVE (NEGATIVE); GLUCOSE NEGATIVE (NEGATIVE); KETONE NEGATIVE (NEGATIVE); NITRITE NEGATIVE (NEGATIVE); UROBILINOGEN NORMAL (NORMAL)
[2019-07-18 20:10] LABS: CALC OSMOLALITY 276 mosm/kg (275-300); CALCIUM 8.5 mg/dL (8.5-10.1); CARBON DIOXIDE 20.4 mmol/L (21.0-32.0); CHLORIDE - SERUM 103 mmol/L (98-107); CREATININE - SERUM 1.1 mg/dL (0.6-1.3); GLUCOSE 109 mg/dL (74-106); SODIUM 136 mmol/L (136-145); UREA NITROGEN 25 mg/dL (7-18); eGFR NON AFRICAN AMERICAN 57 mL/min (90-120)
[2019-07-18 20:28] LABS: ALBUMIN 3.7 g/dL (3.4-5.0); ALKALINE PHOSPHATASE 73 U/L (30-120); ALT (SGPT) 26 U/L (10-68); BILIRUBIN - TOTAL 0.27 mg/dL (0.2-1.3); C-REACTIVE PROTEIN 0.4 mg/dL (0.0-0.9); CKMB 2.2 U/L (0.0-3.6); CREATINE KINASE 242 UL (21-215); FERRITIN 42 ng/mL (3-244); PROTEIN - SERUM 6.8 g/dL (6.4-8.2); TROPONIN-I < 0.017 ng/mL (0.000-0.060)
[2019-07-18] MEDS ORDERED: MEDROL DOSE PACK4 MG PO (22:21)
[2019-07-18] MEDS ORDERED: METHOCARBAMOL500 MG PO (22:26)
[2019-07-18] MEDS ORDERED: TYLENOL W/CODEI1 TAB PO (22:26)
[2019-07-18 23:30] VITALS: BP 114/70
== END 2019-07-18 23:47 | disposition home or self-care (01) ==
LOC: D.ER 19:14
PROVIDERS: Emergency Medicine
DX: J44.1 Chronic obstructive pulmonary disease with (acute) exacerbation (principal); M54.9 Dorsalgia, unspecified; R09.1 Pleurisy